=== PATIENT | female | born 1990 | race African-American/Black ===

== ENCOUNTER 2022-09-21 05:38 | Emergency (ER) | payer OTHER ==
[~2022-09-21] VITALS: Ht 157.5 cm; Wt 104.0 kg
[2022-09-21 05:41] VITALS: BP 134/86
[2022-09-21] MEDS ORDERED: ASPIRIN 81MG TABLET PO ONE (08:45)
[2022-09-21 09:36] LABS: D-DIMER 0.19 mg/L FEU (<0.50); PARTIAL THROMBOPLASTIN TIME 28.8 sec (23.4-31.0); PROTHROMBIN TIME 10.3 sec (9.6-11.0)
[2022-09-21 09:38] LABS: CHLORIDE 103 mEq/L (98-107)
[2022-09-21 09:54] LABS: BASOPHILS % 0.3 % (0.0-2.0); HEMATOCRIT. 38.6 % (36.0-48.0); HEMOGLOBIN. 12.7 g/dL (12.0-16.0); MEAN CORPUSCULAR VOLUME 93.9 fL (81.0-99.0); MEAN PLATELET VOLUME 6.9 fl (7.4-10.4); MONOCYTES % 7.2 % (2.0-8.0); NEUTROPHILS % 48.5 % (40.0-76.0); PLATELET 396 x1000/uL (130-400); RED BLOOD CELL COUNT 4.11 mill/uL (4.2-5.4); RED CELL DISTRIBUTION WIDTH 13.6 % (11.6-14.6)
[2022-09-21 10:16] LABS: HCG SCREEN NEGATIVE
[2022-09-21] MEDS ORDERED: IOHEXOL-350 100 ML BOTTLE ONE (10:45)
[2022-09-21] MEDS ORDERED: IBUP-2028 MT (12:26)
[2022-09-21] MEDS ORDERED: ALBU6.7H3 INH (14:12)
== END 2022-09-21 14:15 | disposition admitted as inpatient to this hospital (09) ==
LOC: ER 05:38
DX: R06.02 Shortness of breath (principal); J45.909 Unspecified asthma, uncomplicated; Z76.0 Encounter for issue of repeat prescription
CPT/HCPCS: 36415; 71045; 71275; 80053; 81025; 83880; 84484; 84703; 85025; 85379; 85610; 85730; 93005; 99285; Q9967; Z7610